=== PATIENT | male | born 1965 | race Caucasian/White ===

== ENCOUNTER → 2025-06-13 15:48 | Outpatient (REF) | payer BC, SELFPAY | LOC: RCS 15:48 | PROVIDERS: ATTENDING PHYSICIAN Nurse Practitioner Family; FAMILY PHYSICIAN Family Medicine | DX: R01.1 Cardiac murmur, unspecified (principal); I10 Essential (primary) hypertension | CPT/HCPCS: 93306 ==

== ENCOUNTER → 2025-06-26 10:35 | Outpatient (REF) | payer BC, SELFPAY | LOC: RCS 10:35 | PROVIDERS: ATTENDING PHYSICIAN Family Medicine | DX: I34.0 Nonrheumatic mitral (valve) insufficiency (principal); I35.1 Nonrheumatic aortic (valve) insufficiency | CPT/HCPCS: 93017 ==

== ENCOUNTER 2025-07-08 07:55 | Day surgery (SDC) | payer BC, SELFPAY | END 2025-07-08 10:49 | disposition home or self-care (01) | LOC: CATH 07:55 | PROVIDERS: ATTENDING PHYSICIAN Internal Medicine Cardiovascular Disease; FAMILY PHYSICIAN Family Medicine; OTHER PHYSICIAN Student in an Organized Health Care Education/Training Program | DX: I08.0 Rheumatic disorders of both mitral and aortic valves (principal); I10 Essential (primary) hypertension | CPT/HCPCS: 93312; 93320; 93325 ==

== ENCOUNTER → 2025-08-04 10:39 | Outpatient (REF) | payer BC, SELFPAY | LOC: REG 10:39 | PROVIDERS: ATTENDING PHYSICIAN Physician Assistant Medical | DX: M25.562 Pain in left knee (principal) | CPT/HCPCS: 73564 ==